=== PATIENT | male | born 1945 | race Caucasian/White ===

== ENCOUNTER 2024-02-05 11:56 | Day surgery (SDC) | payer MEDICARE, OTHER ==
[~2024-02-05] VITALS: Ht 170.2 cm; Wt 104.5 kg
[~2024-02-05 11:56] MED LIST: IBLOOD GLUCOSE TEST STRIP 1 EA TEST VI PRN; LACTATED RINGER'S 1,000 ML IV SCH; LIDOCAINE HCL 1% 5 ML SDV INJ ONE; MIDAZOLAM HCL 5 MG/5 ML VIAL IV PRN; fentaNYL citrate 100 MCG/2 ML VIAL IV PRN
[2024-02-05] MEDS ORDERED: fentaNYL citrate 100 MCG/2 ML VIAL ONE (12:02)
[2024-02-05] MEDS ORDERED: MIDAZOLAM HCL 5 MG/5 ML VIAL ONE (12:02)
[2024-02-05 12:23] VITALS: BP 146/87
--- NOTE | 2024-02-05 13:25 | NUR ---
02/05/24 1325 Myrtle Christensen PT TO PACU AWAKE AND ALERT REPORTS FEELING ABD CRAMPING. ADVISED HIM TO PASS GAS TO HELP WITH CRAMPING
[2024-02-05 14:11] VITALS: BP 156/96
--- NOTE | 2024-02-06 10:26 | OR ---
[facility] [address], [place] [address] Signed DATE OF OPERATION: 02/05/2024 SURGEON: Royer Smith MD PREOPERATIVE DIAGNOSES: History of serrated adenoma 2010 and multiple polyps (hyperplastic 2012). POSTOPERATIVE DIAGNOSES: 1. Polyps x2 of sigmoid. 2. Sessile polyp x1 of the rectum. PROCEDURE: Total colonoscopy to cecum with cold snare polypectomy x1 and cold morcellation polypectomy x2. ANESTHESIA: Intravenous sedation; fentanyl 100 mcg and Versed 5 mg. INDICATION: This 78-year-old white man is a patient of Dr. Misbah Barber. He underwent colonoscopy in 2010, which showed a serrated adenoma and subsequent colonoscopy in 2012 showing four hyperplastic polyps. He is asymptomatic as regard to colon, having no bleeding, diarrhea, or constipation. He has no family history of colon cancer. He is admitted at this time to undergo surveillance colonoscopy. He understands the risk of bleeding, infection, and perforation. FINDINGS: The prep was good. Complete and full intubation of the cecum was accomplished. He had three polyps in aggregate, two in the sigmoid and one in the rectum, all excised. PROCEDURE IN DETAIL: The patient was brought to the endoscopy suite and placed in the lateral decubitus position, given intravenous sedation to the point of slurred speech and nystagmus with full cardiopulmonary monitoring. Digital rectal examination was normal. An Olympus video colonoscope was passed in the rectum and manipulated throughout the colon noting a small polyp of the rectum initially which was sessile. The scope was passed beyond this and ultimately to the cecum without problem. The ileocecal valve and appendiceal orifice were normal. Photographs were taken. The scope was then withdrawn and upon withdrawal of the scope, examination undertaken thoroughly allowing for Electronically Signed By: ROYER SMITH MD 02/06/24 1026 PATIENT NAME: DANIELE PULLIAM OPERATIVE REPORT DATE OF : 49 REPORT #: [id number] PHYSICIAN: ROYER SMITH MD PCP: REMEDIOS CAMACHO MD REPORT IS CONFIDENTIAL AND NOT TO BE RELEASED WITHOUT AUTHORIZATION [facility] [address], [place] [address] Signed irrigation and so on. In the sigmoid, there were two small polyps, probably hyperplastic, both excised with cold morcellation technique. Further withdrawal showed a larger adenomatous appearing polyp of the rectum in the proximal portion. This was excised with cold snare technique. All specimens were passed for permanent pathology. Retroflexed view of the rectum showed no other findings of concern. The scope was removed and the patient was taken to the recovery room in good condition. CONCLUDING DIAGNOSIS: Polyps x3. PLAN: Would recommend repeat colonoscopy in 5 years, sooner if symptoms should develop. He will return to the ongoing care of Dr. Barber. MD KIMBERLI Arteaga/JAMIE /[id number] cc: Misbah Barber MD Copies: MISBAH BARBER MD ~ Electronically Signed By: ROYER SMITH MD 02/06/24 1026 PATIENT NAME: DANIELE PULLIAM OPERATIVE REPORT DATE OF : 49 REPORT #: [id number] PHYSICIAN: ROYER SMITH MD PCP: REMEDIOS CAMACHO MD REPORT IS CONFIDENTIAL AND NOT TO BE RELEASED WITHOUT AUTHORIZATION
--- NOTE | 2024-02-07 12:41 | PATH ---
[facility] [address], [place] [address] Signed SPECIMEN(S): A SIGMOID POLYPS SPECIMEN(S): B RECTAL POLYP SPECIMEN SOURCE: A. SIGMOID POLYPS B. RECTAL POLYP CLINICAL HISTORY: History of polyps FINAL PATHOLOGIC DIAGNOSIS: A. Sigmoid polyps: - Tubular adenoma (two fragments). - Hyperplastic polyp (two fragments). B. Rectal polyp: - Tubular adenoma (one fragment). JVR:clv MICROSCOPIC EXAMINATION: Histologic sections of all submitted blocks are examined by light microscopy. These findings, together with the gross examination, support the pathologic diagnosis. GROSS DESCRIPTION: A. The specimen, labeled and designated "Marco Antonio, sigmoid polyps," is received in formalin and consists of four sosa soft tissue fragments, ranging from 0.3-0.4 cm. Entirely submitted in (A1). B. The specimen, labeled and designated "Marco Antonio, rectal polyp," is received in formalin and consists of two sosa soft tissue fragments, ranging from 0.3-0.5 cm. Entirely submitted in (B1). VB (under the direct supervision of a pathologist) The Gross Description was prepared using a voice recognition system. The report was reviewed for accuracy; however, sound-alike word errors, addition and/or deletions may occur. If there is any question about this report, please contact Client Services. PERFORMING LABORATORY: Technical component was performed by [facility], [address] [place] [id number] (CLIA# [id number]). Professional interpretation was performed by [facility], [address] [place] [id number] (CLIA#: [id number]). PATIENT NAME: DANIELE PULLIAM PATHOLOGY DATE OF : 49 REPORT #: [id number] PHYSICIAN: JAZMIN PATHOLOGY PCP: REMEDIOS CAMACHO MD REPORT IS CONFIDENTIAL AND NOT TO BE RELEASED WITHOUT AUTHORIZATION [address] [address] Signed Diagnostician: Jovani Parker MD Pathologist Electronically Signed 02/07/2024 Copies: ~ PATIENT NAME: DANIELE PULLIAM PATHOLOGY DATE OF : 49 REPORT #: [id number] PHYSICIAN: JAZMIN PATHOLOGY PCP: REMEDIOS CAMACHO MD REPORT IS CONFIDENTIAL AND NOT TO BE RELEASED WITHOUT AUTHORIZATION
== END 2024-02-05 14:25 | disposition home or self-care (01) ==
LOC: OPS 11:56 → DS 12:04 → OPS 13:00 → DS 13:00 → OPS 14:25
PROVIDERS: ATTEND Surgery
PROC: 0DBN8ZZ Excision of Sigmoid Colon, Via Natural or Artificial Opening Endoscopic (ICD-10-PCS; 2024-02-05)
PROC: 0DBP8ZZ Excision of Rectum, Via Natural or Artificial Opening Endoscopic (ICD-10-PCS; principal; 2024-02-05 13:00)
DX: Z12.11 Encounter for screening for malignant neoplasm of colon (principal); D12.5 Benign neoplasm of sigmoid colon; D12.8 Benign neoplasm of rectum
CPT/HCPCS: 88305; 99153; G0500; J2250; J3010; J7121